=== PATIENT | female | born 1970 | race Caucasian/White ===

== ENCOUNTER → 2017-06-03 | Outpatient (CLI) | payer BC | LOC: MC.RAD 11:14 | DX: Z12.31 Encounter for screening mammogram for malignant neoplasm of breast (principal) ==

== ENCOUNTER → 2019-06-13 | Outpatient (CLI) | payer BC | LOC: MC.RAD 08:44 | DX: Z12.31 Encounter for screening mammogram for malignant neoplasm of breast (principal) ==

== ENCOUNTER → 2020-06-19 | Outpatient (CLI) | payer BC | LOC: MC.RAD 10:52 | DX: Z12.31 Encounter for screening mammogram for malignant neoplasm of breast (principal) ==

== ENCOUNTER 2022-07-15 06:44 | Day surgery (SDC) | payer BC ==
[2022-07-15] VITALS (15 sets, daily range): BP systolic 105–126; BP diastolic 65–85; PULSE 51–68; TEMP 97.1
[~2022-07-15] VITALS: Ht 167.6 cm; Wt 81.4 kg
[2022-07-15 07:47] LABS: HEMATOCRIT 41.8 % (37.0-47.0); HEMOGLOBIN 14.1 g/dl (12.5-16.0); MEAN CELL VOLUME 92 fl (80.0-100.0); MEAN CORPUSCULAR HEMOGLOBIN 31 pg (27-31); MEAN CORPUSCULAR HGB CONC 34 g/dl (33.0-37.0); MEAN PLATELET VOLUME 10.1 fl (7.4-10.4); PLATELET COUNT 257 K/mm3 (130-400); RED BLOOD COUNT 4.53 M/mm3 (4.10-5.30); REDCELL DISTRIBUTION WIDTH-CV 11.7 % (11.5-14.5)
[2022-07-15 07:51] LABS: CALCIUM 9.1 mg/dL (8.4-10.2); CREATININE, serum 0.9 mg/dL (0.57-1.11); POTASSIUM 3.7 mmol/L (3.5-4.5)
[2022-07-15] MEDS ORDERED: HCTZ12.5TAB PO (08:05)
[2022-07-15] MEDS ORDERED: EPA FISH OIL1 SGL PO (08:05)
[2022-07-15] MEDS ORDERED: BYSTOLIC2.5 MG PO (08:06)
[2022-07-15] MEDS ORDERED: COZAAR100 MG PO (08:06)
[2022-07-15] MEDS ORDERED: LIPITOR 80MG80 MG PO (08:07)
[2022-07-15] MEDS ORDERED: PROTONIX20 MG PO (08:07)
[2022-07-15] MEDS ORDERED: ISORDIL TITRADO30 MG PO (08:08)
[2022-07-15] MEDS ORDERED: REPATHA SU140 MG/1 M SQ (08:09)
[2022-07-15] MEDS ORDERED: ASPIRIN 81M81 MG/TA2 PO (08:10)
[2022-07-15] MEDS ORDERED: THE MEDICINE S200 M2 PO (08:10)
[2022-07-15] MEDS ORDERED: NITROSTAT0.4 MG/TAB SL (08:10)
[2022-07-15] MEDS ORDERED: VITAMIND3 5000 PO (08:12)
[2022-07-15 08:15] LABS: PROTHROMBIN TIME 11.6 SECONDS (9.7-12.8)
[2022-07-15 08:27] LABS: PARTIAL THROMBOPLASTIN TIME 33.2 SECONDS (26.0-37.0)
--- NOTE | 2022-07-15 09:09 | NUR ---
See merge for all medication, assessment, intervention, and vital sign times.
--- NOTE | 2022-07-15 09:50 | NUR ---
Pt returned from procedure,report from HARLAN Elliott.
[2022-07-15] MEDS ORDERED: LIPITOR 40MG TA40 MG PO (14:36)
--- NOTE | 2022-07-15 15:23 | NUR ---
Discharge instructions given to pt.pt verbalizes understanding.pt escorted out via wheelchair by this nurse.
== END 2022-07-15 15:27 ==
LOC: COL.CAR 06:44
PROVIDERS: Internal Medicine Cardiovascular Disease
DX: I25.118 Atherosclerotic heart disease of native coronary artery with other forms of angina pectoris (principal); I10 Essential (primary) hypertension; E78.01 Familial hypercholesterolemia; K21.9 Gastro-esophageal reflux disease without esophagitis; Z79.899 Other long term (current) drug therapy
CPT/HCPCS: C1769; J1644; J2250; J3010; Q9967